=== PATIENT | male | born 1965 | race Caucasian/White ===

== ENCOUNTER 2017-08-26 16:33 | Emergency (ER) | payer MEDICARE, OTHER ==
--- NOTE | 2017-08-26 17:05 | ED Physician Documentation ---
General Adult - HISTORIAN Historian: patient - HPI Stated Complaint: fever Chief Complaint: Fever Additional Information: 51 yo male presents with guardian with c/o fever 104F. Woke this morning more tired than his usual per guardian. Dry cough. No nausea/vomiting/diarrhea. No recent travel. 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 Pt has MR Timing: better - ROS CONST: fever, weakness EYES/ENT: none - PAST HX Past History: other (mental retardation) Other History: other (distant history of TB, s/p treatment in [facility]) Allergies/Adverse Reactions: Allergies Allergy/AdvReac Type Severity Reaction Status Date / Time No Known Allergies Allergy Unverified 08/26/17 16:51 Home Medications: Ambulatory Orders Medication Instructions Recorded Oseltamivir Phosphate [Tamiflu] 75 mg PO BID #10 capsule 08/26/17 - SOCIAL HX Smoking History: non-smoker - FAMILY HX Family History: No - VITAL SIGNS Vital Signs: Vital Signs Temp Pulse Resp BP Pulse Ox 100.8 F H 136 H 16 159/99 95 08/26/17 16:38 08/26/17 16:38 08/26/17 16:38 08/26/17 16:38 08/26/17 16:38 ED Results Lab/Radiology - Lab Results Lab Results: Labs reviewed. Unfortunately, lab testing for Influenza is unavailable at this time in this hospital. Pt symptomatically has Influenza and will start Tamiflu based on symptoms. Guardian is in agreement - Radiology Radiology Impressions: Examination: PA and lateral chest. History: Evaluate lung rivas. Comparison exam: None available for direct review. Findings: PA lateral chest demonstrate a normal cardiac and mediastinal silhouette. Elevation of the right hemidiaphragm. Increased interstitial prominence. No blunting of the costophrenic margins. Osseous structures are appropriate for age. Impression: Increased interstitial prominence without effusion - infiltrate versus increased volume status. Electronically signed on Aug 26, 2017 5:15:34 PM BAIL AGENT by: Nasir Miner - Orders Orders: ED Orders Category Date Time Status CHEST P.A.&LAT 2 VIEWS [RAD] Stat Exams 08/26/17 Ordered CBC/PLATELET/DIFF Routine Lab 08/26/17 Ordered CMP Routine Lab 08/26/17 Ordered UA W/MICRO IF INDICATED Routine Lab 08/26/17 16:57 Ordered 0.9 % Sodium Chloride [Normal Saline] 1,000 ml Med 08/26/17 16:57 Active IV Q1H 0.9 % Sodium Chloride [Normal Saline] 1,000 ml Med 08/26/17 16:58 Active IV Q1H General Adult Physical Exam - PHYSICAL EXAM GENERAL APPEARANCE: no distress EENT: eye inspection normal, ENT inspection normal, no signs of dehydration, EMILY NECK: normal inspection RESPIRATORY: no resp distress, chest non-tender CVS: reg rate & rhythm, heart sounds normal ABDOMEN: soft BACK: normal inspection SKIN: warm/dry, normal color NEURO: motor nml Discharge Clincal Impression: Influenza Prescriptions: Oseltamivir Phosphate [Tamiflu] 75 mg PO BID #10 capsule Referrals: Sandeep Hemphill MD [Primary Care Provider] - 2 Days Condition: Good Disposition: 01 HOME, SELF-CARE Decision to Admit: NO Decision Time: 18:06
[2017-08-26] MEDS: 0.9 % SODIUM CHLORIDE 1,000 ML IV ONE ×2 (17:24→18:29)
[2017-08-26 17:32] LABS: APPEARANCE,URINE Clear (CLEAR); COLOR,URINE Yellow (YELLOW); OCCULT BLOOD,URINE 1+ (NEGATIVE)
[2017-08-26 17:40] LABS: MEAN CORPUSCULAR VOLUME 84.6 fl (80.0-100.0)
--- NOTE | 2017-08-26 17:49 | Diagnostic Imaging Report ---
[facility] [address] [facility].[address] [id number] Report Submission Date: Aug 26, 2017 5:15:34 PM AUDIOPROSTHOLOGIST Patient Study Name: ROSEMARY FRIAS Date: Aug 26, 2017 5:03:40 PM AUDIOPROSTHOLOGIST Modality Type: CR Gender: M Description: CHEST : 67 Institution: [facility] Physician: LAURENCE WILLS Examination: PA and lateral chest. History: Evaluate lung rivas. Comparison exam: None available for direct review. Findings: PA lateral chest demonstrate a normal cardiac and mediastinal silhouette. Elevation of the right hemidiaphragm. Increased interstitial prominence. No blunting of the costophrenic margins. Osseous structures are appropriate for age. Impression: Increased interstitial prominence without effusion - infiltrate versus increased volume status. Electronically signed on Aug 26, 2017 5:15:34 PM AUDIOPROSTHOLOGIST by: Nasir VELASCO
[2017-08-26 17:50] LABS: SPERM,URINE PRESENT (NEGATIVE)
[2017-08-26 17:52] LABS: eGFR (African) > 60; eGFR (Non-African) > 60
[2017-08-26 18:10] LABS: BASOPHILS % 1 % (0-2); MONOCYTES % 6 % (0-11); SEGMENTED NEUTROPHILS % 74 % (39-79)
[2017-08-26] MEDS: ACETAMINOPHEN 325 MG TABLET PO ONE (18:30)
[2017-08-26] MEDS: KETOROLAC TROMETHAMINE 30 MG/1ML VIAL IVP ONE (18:30)
[2017-08-26 19:24] VITALS: BP 125/83
[2017-08-26] MEDS: KETOROLAC TROMETHAMINE 30 MG/1ML VIAL ONE (19:24)
[2017-08-26] MEDS: ACETAMINOPHEN 325 MG TABLET ONE (19:24)
== END 2017-08-26 19:22 | disposition home or self-care (01) ==
LOC: ED 16:33 → EDSTATUS 16:34 → ED 19:22
DX: J11.1 Influenza due to unidentified influenza virus with other respiratory manifestations (principal)
CPT/HCPCS: 71020; 80053; 81002; 85025; 96365; 96366; 96375; 99283; J1885; J7030; S1016

== ENCOUNTER 2017-08-31 12:15 | Emergency (ER) | payer MEDICARE, OTHER ==
--- NOTE | 2017-08-31 12:38 | ED Physician Documentation ---
General Adult - HISTORIAN Historian: patient - HPI Stated Complaint: Flu Sx's Chief Complaint: General Adult Onset: days ago Timing: still present Severity: moderate Further Comments: yes (Pt is a 51 yo male with MR who was dx'd with influenza last week and completed a course of Tamiflu. Pt has continued to have fever and cough. 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 and also was recently rx'd Tamiflu.) - ROS CONST: fever, chills, other (malaise) EYES/ENT: nasal congestion CVS/RESP: none, chest pain, shortness of breath GI/: none MS/SKIN/LYMPH: none - PAST HX Past History: other (MR) Allergies/Adverse Reactions: Allergies Allergy/AdvReac Type Severity Reaction Status Date / Time No Known Allergies Allergy Unverified 08/26/17 16:51 Home Medications: Ambulatory Orders Medication Instructions Recorded Oseltamivir Phosphate [Tamiflu] 75 mg PO BID #10 capsule 08/26/17 - SOCIAL HX Smoking History: non-smoker - FAMILY HX Family History: No - VITAL SIGNS Vital Signs: Vital Signs Temp Pulse Resp BP Pulse Ox 99.8 F H 118 H 24 138/82 95 08/31/17 12:15 08/31/17 12:15 08/31/17 12:15 08/31/17 12:15 08/31/17 12:15 - REVIEWED ASSESSMENTS Nursing Assessment Reviewed: Yes Vitals Reviewed: Yes Progress - Progress Progress: NS 1 L IVF NS 500 cc IVF Toradol 30 mg IV Rx Azithromycin, Z-ec as directed. General Adult Physical Exam - PHYSICAL EXAM GENERAL APPEARANCE: mild distress EENT: pharynx normal NECK: normal inspection, supple RESPIRATORY: no resp distress, chest non-tender, breath sounds normal CVS: tachycardia ABDOMEN: soft, no organomegaly, normal bowel sounds BACK: normal inspection, no CVA tenderness SKIN: warm/dry, normal color EXTREMITIES: non-tender, normal range of motion, no evidence of injury NEURO: motor nml, sensation nml, other (baseline ms) Discharge Clincal Impression: dehydration, Cough, Influenza Referrals: Primary Doctor,No [REFERRING] - Condition: Good Disposition: 01 HOME, SELF-CARE Decision to Admit: NO Decision Time: 14:27
[2017-08-31] MEDS ORDERED: 0.9 % SODIUM CHLORIDE 1,000 ML IV ONE (13:37)
[2017-08-31] MEDS ORDERED: 0.9 % SODIUM CHLORIDE 500 ML IV ONE ×2 (14:48→14:49)
[2017-08-31] MEDS ORDERED: KETOROLAC TROMETHAMINE 30 MG/1ML VIAL IVP ONE (14:53)
[2017-08-31 15:40] VITALS: BP 130/90
== END 2017-08-31 15:38 | disposition home or self-care (01) ==
LOC: ED 12:15
DX: E86.0 Dehydration (principal); J11.1 Influenza due to unidentified influenza virus with other respiratory manifestations
CPT/HCPCS: J1885; J7030; J7060; 96360; 96375; 99283; S1016